=== PATIENT | female | born 1950 | race Caucasian/White ===

== ENCOUNTER 2023-04-23 14:20 | Emergency (ER) | payer MEDICARE ==
[~2023-04-23] VITALS: Ht 167.6 cm; Wt 64.0 kg
[2023-04-23 15:01] VITALS: BP 124/65; PULSE 54; RESP 14; TEMP 97.8
[2023-04-23] MEDS ORDERED: ACETAMINOPHEN EXTRA STRENGTH 500 MG TAB PO ONE (16:25)
[2023-04-23] MEDS ORDERED: KETOROLAC 30 MG/ML VIAL IM ONE (16:25)
[2023-04-23] MEDS ORDERED: diazePAM 5 MG TAB PO ONE (16:25)
[2023-04-23] MEDS ORDERED: LIDOCAINE 5% 1 EA PATCH TP ONE (17:08)
[2023-04-23 17:25] VITALS: BP 124/65; PULSE 54; RESP 14; TEMP 97.8
[2023-04-24] MEDS ORDERED: LIDOCAINE 5% 1 EA PATCH TP SCH (09:00)
== END 2023-04-23 17:25 | disposition home or self-care (01) ==
LOC: MED 14:20
DX: M54.50 Low back pain, unspecified (principal)
CPT/HCPCS: 96372; 99284; J1885